=== PATIENT | male | born 1985 ===

== ENCOUNTER 2020-05-04 08:58 | Outpatient (CLI) | payer OTHER | END 2020-05-04 09:14 | disposition home or self-care (01) | LOC: RX STUDY 08:58 | PROVIDERS: ATTEND Internal Medicine | DX: K46.9 Unspecified abdominal hernia without obstruction or gangrene (principal); G47.31 Primary central sleep apnea; K21.00 Gastro-esophageal reflux disease with esophagitis, without bleeding ==